=== PATIENT | female | born 1960 | race Asian ===

== ENCOUNTER 2020-10-10 07:36 | Day surgery (SDC) | payer BC, OTHER ==
[2020-10-07 12:30] VITALS: BMI 31.8
[2020-10-10 07:50] VITALS: BP 128/83; PULSE 72; TEMP 98.2
== END 2020-10-10 09:30 | disposition home or self-care (01) ==
LOC: FASU 07:36
PROVIDERS: ATTEND Orthopaedic Surgery
DX: Z53.8 Procedure and treatment not carried out for other reasons (principal)
CPT/HCPCS: 36415; 84132

== ENCOUNTER 2020-10-31 05:45 | Day surgery (SDC) | payer BC ==
[2020-10-28 11:27] VITALS: BMI 31.8
[2020-10-31] MEDS ORDERED: ROPIVACAINE HCL 0.5% 30ML VIAL ONE (06:20)
[2020-10-31] MEDS ORDERED: MIDAZOLAM HCL 2 MG/2 ML SINGLE DOSE VIAL ONE (06:20)
[2020-10-31] MEDS ORDERED: EPINEPHrine 1:1,000 1 MG/1 ML - 30ML VIAL (INJECTION) ONE (07:16)
[2020-10-31] MEDS ORDERED: PROPOFOL 20 ML ONE ×4 (07:25→09:02)
[2020-10-31] MEDS ORDERED: EPHEDRINE SULFATE/0.9% NACL/PF 50 MG/10 ML SYRINGE NR ONE (07:26)
[2020-10-31] MEDS ORDERED: ATROPINE SO4 0.4 MG/1 ML VIAL ONE (07:26)
[2020-10-31] MEDS ORDERED: SUCCINYLCHOLINE CHLORIDE 200 MG/10 ML SYRINGE ONE (07:26)
[2020-10-31] MEDS ORDERED: ATROPINE SULFATE 1 MG/10 ML DISP.SYRIN ONE (07:26)
[2020-10-31] MEDS ORDERED: ONDANSETRON 4 MG/2 ML VIAL ONE (08:08)
[2020-10-31 10:37] VITALS: TEMP 97.2
[2020-10-31 11:06] VITALS: BP 122/74; PULSE 66
== END 2020-10-31 11:26 | disposition home or self-care (01) ==
LOC: FASU 05:45
PROVIDERS: ATTEND Orthopaedic Surgery
PROC: 0MM14ZZ Reattachment of Right Shoulder Bursa and Ligament, Percutaneous Endoscopic Approach (ICD-10-PCS; 2020-10-31)
PROC: 0LQ14ZZ Repair Right Shoulder Tendon, Percutaneous Endoscopic Approach (ICD-10-PCS; 2020-10-31)
PROC: 0RHJ44Z Insertion of Internal Fixation Device into Right Shoulder Joint, Percutaneous Endoscopic Approach (ICD-10-PCS; 2020-10-31)
PROC: 0RBJ4ZZ Excision of Right Shoulder Joint, Percutaneous Endoscopic Approach (ICD-10-PCS; 2020-10-31)
PROC: 01N54ZZ Release Median Nerve, Percutaneous Endoscopic Approach (ICD-10-PCS; 2020-10-31)
PROC: 0LN30ZZ Release Right Upper Arm Tendon, Open Approach (ICD-10-PCS; 2020-10-31)
PROC: 01N50ZZ Release Median Nerve, Open Approach (ICD-10-PCS; 2020-10-31)
PROC: 0RNJ4ZZ Release Right Shoulder Joint, Percutaneous Endoscopic Approach (ICD-10-PCS; principal; 2020-10-31 08:38)
PROC: 0LS34ZZ Reposition Right Upper Arm Tendon, Percutaneous Endoscopic Approach (ICD-10-PCS; 2020-10-31 08:38)
DX: M75.101 Unspecified rotator cuff tear or rupture of right shoulder, not specified as traumatic (principal); M75.01 Adhesive capsulitis of right shoulder; G56.01 Carpal tunnel syndrome, right upper limb; M25.811 Other specified joint disorders, right shoulder; S43.431A Superior glenoid labrum lesion of right shoulder, initial encounter; M19.011 Primary osteoarthritis, right shoulder; S46.111A Strain of muscle, fascia and tendon of long head of biceps, right arm, initial encounter; X58.XXXA Exposure to other specified factors, initial encounter; Y93.9 Activity, unspecified; Y92.9 Unspecified place or not applicable; Y99.9 Unspecified external cause status
CPT/HCPCS: 88304-TC; 94760